=== PATIENT | female | born 1995 | race Caucasian/White ===

== ENCOUNTER 2019-02-22 14:09 | Emergency (ER) | payer OTHER ==
[~2019-02-22] VITALS: Ht 177.8 cm; Wt 72.3 kg
[2019-02-22] MEDS ORDERED: IBUP-1114 PO (14:24)
[2019-02-22] MEDS ORDERED: ACET-683 PO (14:24)
[2019-02-22] MEDS ORDERED: AUGM875T28 PO (15:29)
[2019-02-22] MEDS ORDERED: PERC5TAB12 PO (15:29)
[2019-02-22] MEDS ORDERED: AUGMENTIN 875 MG TAB PO ONE (15:30)
[2019-02-22] MEDS ORDERED: PERCOCET 5MG/325MG TAB PO ONE (15:30)
[2019-02-22 15:47] VITALS: BP 117/69
== END 2019-02-22 15:51 | disposition home or self-care (01) ==
LOC: M ED 14:09
DX: K02.9 Dental caries, unspecified (principal)

== ENCOUNTER 2019-02-25 19:24 | Emergency (ER) | payer OTHER ==
[~2019-02-25] VITALS: Ht 177.8 cm; Wt 71.8 kg
[~2019-02-25 19:24] MED LIST: ACET-683 PO; AUGM875T28 PO; IBUP-1114 PO; PERC5TAB12 PO
[2019-02-25] MEDS ORDERED: AMOX500C PO (19:32)
[2019-02-25 20:34] LABS: BASO % 0.2 % (0.0-1.0); EOS # 0.3 10^3/uL (0.0-0.5); EOS % 3.6 % (0.0-3.0); HEMATOCRIT 37.9 % (36.0-47.0); HEMOGLOBIN 12.4 g/dl (12.0-15.5); LYMPH # 2.3 10^3/uL (1.5-5.0); LYMPH % 26.2 % (24.0-44.0); MEAN CORPUSCULAR HEMOGLOBIN 27.8 pg (27.0-33.0); MEAN CORPUSCULAR HGB CONC 32.7 g/dl (32.0-36.5); MONO # 0.6 10^3/uL (0.0-0.8); MONO % 7.1 % (0.0-5.0); NEUTROPHILS # 5.5 10^3/uL (1.5-8.5); NEUTROPHILS % 62.7 % (36.0-66.0); PLATELET COUNT, AUTOMATED 234 10^3/uL (150-450); RED BLOOD COUNT 4.46 10^6/uL (4.00-5.40); WHITE BLOOD COUNT 8.7 10^3/uL (4.0-10.0)
[2019-02-25 20:53] LABS: ERYTHROCYTE SEDIMENTATION RATE 14 mm/hr (0-20)
[2019-02-25] MEDS ORDERED: ISOVUE-370 76% 100ML VIAL (Q9967) As Ordered ONE (21:05)
--- NOTE | 2019-02-25 22:03 | REPVR ---
PROCEDURE INFORMATION: Exam: CT Maxillofacial With Contrast Exam date and time: 02/25/2019 9:09 PM Clinical history: 23 years old, female; Mass, lump, or swelling; Maxilla; Additional info: Left facial swelling TECHNIQUE: Imaging protocol: Computed tomography images of the face with intravenous contrast. Radiation optimization: All CT scans at this facility use at least one of these dose optimization techniques: automated exposure control; mA and/or kV adjustment per patient size (includes targeted exams where dose is matched to clinical indication); or iterative reconstruction. Contrast material: ISOVUE 370; Contrast volume: 75 ml; Contrast route: IV; COMPARISON: No relevant prior studies available. FINDINGS: Orbits: Orbits are normal. Globes are unremarkable. Sinuses: Normal. No air-fluid levels. Bones/joints: No acute fracture. Lymph nodes: There is mild reactive lymphadenopathy in the neck. Small cluster of lymph nodes is noted posterior to the left mandibular ramus measuring up to 2.0 x 1.0 cm. Soft tissues: Mild subcutaneous edema in the left facial soft tissues. No abscess or other fluid collection is identified. No subcutaneous gas or foreign bodies. IMPRESSION: Left facial cellulitis with reactive adenopathy. No abscess or drainable fluid collection. Electronically signed by: Jonah Quick On 02/25/2019 22:02:58 PM
[2019-02-25] MEDS ORDERED: AMPICILLIN SOD/SULBACTAM SOD 3 GM in D5W MINI-BAG PLUS 100 ML IV ONE (22:30)
[2019-02-25] MEDS ORDERED: KETOROLAC 30 MG/ML VIAL (J1885) IV ONE (22:30)
[2019-02-25] MEDS ORDERED: dexameTHASONE 20 MG/5 ML VIAL (J1100) IV ONE (22:30)
[2019-02-25] MEDS ORDERED: PERCOCET 5MG/325MG TAB PO ONE (23:30)
[2019-02-25 23:36] VITALS: BP 112/72
== END 2019-02-26 00:17 | disposition home or self-care (01) ==
LOC: M ED 19:24
DX: L03.211 Cellulitis of face (principal); K02.9 Dental caries, unspecified; R68.84 Jaw pain; H92.02 Otalgia, left ear; Z79.2 Long term (current) use of antibiotics
CPT/HCPCS: 70487; 80047; 84702; 85025; 85652; 86140; 87040; 96365; 96375; 99284; J1100; J1885; Q9967